=== PATIENT | female | born 1930 | race Caucasian/White ===

== ENCOUNTER → 2017-06-06 | Outpatient (CLI) | payer OTHER ==
--- NOTE | 2017-06-06 16:56 | MRI ---
History: Decreased memory, impaired cognitive function. Technique: Multiplanar, multi sequence MR imaging of the brain was performed without IV contrast. Comparison:NONE Findings: There is no restricted diffusion to suggest hyperacute, acute, or early subacute infarct. There is mild, generalized age-appropriate volume loss. 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 There is no mass or mass effect. There is no abnormal extra-axial fluid collecti on. Ventricles district mild ex vacuo dilatation without evidence of obstructive hydrocephalus. Impression: 1. No acute intracranial abnormality demonstrated. 2. Mild T2 prolongation within the periventricular white matter with multiple small scattered foci of subcortical and deep white matter. These findings are nonspecific but are consistent with mild chron ic microangiopathic ischemic white matter disease in a patient of this age. 3. Mild generalized age-appropriate volume loss. Reported By:
== END ==
LOC: RAD 14:31
PROVIDERS: ATTEND Psychiatry & Neurology Neurology
DX: R41.89 Other symptoms and signs involving cognitive functions and awareness (principal)
CPT/HCPCS: 70551

== ENCOUNTER → 2017-06-17 | Outpatient (CLI) | payer OTHER | LOC: RT 13:06 | PROVIDERS: ATTEND Psychiatry & Neurology Neurology | DX: R41.89 Other symptoms and signs involving cognitive functions and awareness (principal) ==